=== PATIENT | female | born 1975 | race Caucasian/White ===

== ENCOUNTER 2019-11-28 11:32 | Observation (INO) | payer MEDICAID ==
[~2019-11-28] VITALS: Ht 147.3 cm; Wt 58.1 kg
[~2019-11-28 11:32] MED LIST: IBUP-779 PO; IRON18TA PO; MULT-1101 PO
[2019-11-28] MEDS ORDERED: URSO300C4 PO (14:16)
== END 2019-11-28 14:30 | disposition home or self-care (01) ==
LOC: 8 EST LDRP 11:32
PROVIDERS: ADMIT Obstetrics & Gynecology; ATTEND Obstetrics & Gynecology
DX: O36.8190 Decreased fetal movements, unspecified trimester, not applicable or unspecified (principal); Z3A.00 Weeks of gestation of pregnancy not specified
CPT/HCPCS: 76815; 76818; 99281; G0378

== ENCOUNTER 2019-12-05 08:04 | Inpatient (IN) | payer MEDICAID ==
[~2019-12-05] VITALS: Ht 147.3 cm; Wt 83.5 kg
[~2019-12-05 08:04] MED LIST changes: -IBUP-779 PO; +URSO300C4 PO
[2019-12-05] MEDS ORDERED: LACTATED RINGERS 1,000 ML IV SCH (08:51)
[2019-12-05] MEDS ORDERED: DEXT 5%/LR + PITOCIN 20UNITS/L 1,000 ML IV SCH ×2 (08:51→10:39)
[2019-12-05] MEDS ORDERED: METHYLERGONOVINE MALEATE 0.2 MG/ML IM PRN (09:00)
[2019-12-05] MEDS ORDERED: CARBOPROST TROMETHAMINE 250 MCG/ML AMPUL IM PRN (09:00)
[2019-12-05] MEDS ORDERED: NALOXONE HCL 0.4 MG/ML 1ML VIAL IM PRN (09:00)
[2019-12-05] MEDS ORDERED: FENTANYL CITRATE/PF 50MCG/ML 2ML VIAL ONE (09:04)
[2019-12-05] MEDS ORDERED: MORPHINE SULFATE/PF 1MG/ML 10ML AMP ONE (09:05)
[2019-12-05] MEDS ORDERED: SODIUM CHLORIDE 0.9% 10ML VIAL ONE (09:07)
[2019-12-05] MEDS ORDERED: CEFAZOLIN SODIUM 1000MG/VIAL ONE (09:07)
[2019-12-05 09:11] LABS: BASOPHILS % 0.7 % (0.0-2.0); EOSINOPHILS % 4.6 % (0.0-5.0); HEMATOCRIT. 33.7 % (36.0-48.0); HEMOGLOBIN. 11.6 g/dL (12.0-16.0); LYMPHOCYTES % 24.7 % (20.0-50.0); MEAN CORPUSCULAR HEMOGLOBIN 29.8 pg (28.0-32.0); MEAN CORPUSCULAR VOLUME 86.6 fL (81.0-99.0); MEAN PLATELET VOLUME 9.1 fl (7.4-10.4); PLATELET 237 x1000/uL (130-400); RED BLOOD CELL COUNT 3.89 mill/uL (4.2-5.4); RED CELL DISTRIBUTION WIDTH 13.3 % (11.6-14.6)
[2019-12-05 09:20] LABS: INR 0.9; PARTIAL THROMBOPLASTIN TIME 28.5 sec (23.4-31.0)
[2019-12-05 09:22] LABS: CLARITY URINE CLEAR (CLEAR); COLOR URINE YELLOW (YELLOW); KETONES URINE NEGATIVE (NEGATIVE); LEUKOCYTE ESTERASE URINE NEGATIVE (NEGATIVE); NITRITE URINE NEGATIVE (NEGATIVE); OCCULT BLOOD URINE NEGATIVE (NEGATIVE); PH URINE 6.5 (4.5-8.0); PROTEIN URINE NEGATIVE (NEGATIVE); SPECIFIC GRAVITY URINE 1.009 (1.005-1.030); UROBILINOGEN URINE 0.2 E.U./dL (0.2-1.0)
[2019-12-05] MEDS ORDERED: CITRIC ACID/SODIUM CITRATE SOLN 30ML UDC PO ONE (09:30)
[2019-12-05 09:51] LABS: *AMPHETAMINES SCREEN URINE NEGATIVE (NEGATIVE); *BARBITURATES SCREEN URINE NEGATIVE (NEGATIVE); *BENZODIAZEPINES SCREEN URINE NEGATIVE (NEGATIVE); *COCAINE SCREEN URINE NEGATIVE (NEGATIVE); METHADONE URINE SCREEN NEGATIVE (NEGATIVE); OPIATES URINE SCREEN NEGATIVE (NEGATIVE)
[2019-12-05 09:52] LABS: CANNABINOID URINE SCREEN NEGATIVE (NEGATIVE); PHENCYCLIDINE URINE SCREEN NEGATIVE (NEGATIVE)
[2019-12-05] MEDS ORDERED: BUPIVACAINE HCL/DEXTROSE/PF 0.75% 2ML AMP INJ ONE (10:22)
[2019-12-05] MEDS ORDERED: ESMOLOL HCL 10MG/ML 10ML VIAL IV ONE (10:22)
[2019-12-05] MEDS ORDERED: DIPHENHYDRAMINE 50MG/ML VIAL ONE (10:27)
[2019-12-05] MEDS ORDERED: KETOROLAC 60MG/2ML VIAL IM ONE (10:27)
[2019-12-05] MEDS ORDERED: BISACODYL 10MG SUPP PR PRN (10:45)
[2019-12-05] MEDS ORDERED: LANOLIN OINT 7GM TUBE TOP PRN (10:45)
[2019-12-05] MEDS ORDERED: IBUPROFEN 400MG TABLET PO PRN (10:45)
[2019-12-05] MEDS ORDERED: ONDANSETRON HCL 4MG/2ML INJ IV PRN (10:45)
[2019-12-05] MEDS ORDERED: HEMORRHOIDAL SUPP PR PRN (10:45)
[2019-12-05] MEDS ORDERED: DIPHENHYDRAMINE 25MG CAPSULE PO PRN (10:45)
[2019-12-05] MEDS ORDERED: DIPHENHYDRAMINE 50MG/ML VIAL IV PRN (11:00)
[2019-12-05] MEDS ORDERED: NALOXONE HCL 0.4 MG/ML 1ML VIAL IV PRN (11:00)
[2019-12-05] MEDS ORDERED: BUTORPHANOL TARTRATE 2 MG/ML VIAL IV PRN (11:00)
[2019-12-05 12:24] LABS: HEPATITIS B SURFACE ANTIGEN NEGATIVE
[2019-12-05 14:30] VITALS: BP 98/50
[2019-12-05 15:00] VITALS: BP 102/49
[2019-12-05 15:45] VITALS: BP 93/49
[2019-12-05] MEDS ORDERED: KETOROLAC 30MG/ML VIAL IV SCH (16:00)
[2019-12-05 17:53] VITALS: BP 113/69
[2019-12-05 19:30] VITALS: BP 99/60
[2019-12-05 23:22] VITALS: BP 98/65
[2019-12-06 03:32] VITALS: BP 98/60
[2019-12-06 06:30] VITALS: BP 89/60
[2019-12-06 08:30] VITALS: BP 90/56
[2019-12-06] MEDS: SIMETHICONE 80MG TABLET CHEW PO SCH ×2 (14:02→21:11)
[2019-12-06] MEDS: FERROUS SULFATE 325MG TABLET PO SCH (14:02)
[2019-12-06] MEDS: PRENATAL VIT/FE FUMARATE/FA TABLET PO SCH (14:02)
[2019-12-06] MEDS: ACETAMINOPHEN WITH CODEINE 300/30MG TABLET PO PRN ×2 (14:03→19:43)
[2019-12-06 16:12] VITALS: BP 110/58
[2019-12-06 19:40] VITALS: BP 103/56
[2019-12-06] MEDS: DOCUSATE SODIUM 100MG CAPSULE PO SCH ×2 (21:00→21:11)
[2019-12-06] MEDS: IBUPROFEN 800MG TABLET PO PRN (21:10)
[2019-12-06] MEDS: MAGNESIUM/ALUMINUM HYDROXIDE/SIMETHICONE 30ML UDC PO SCH (21:11)
[2019-12-07] MEDS: HYDROCODONE/ACETAMINOPHEN 5/325MG TABLET PO PRN ×3 (03:33→20:44)
[2019-12-07 04:33] VITALS: BP 97/40
[2019-12-07] MEDS ORDERED: INFLUENZA VIRUS VACCINE(AFLURIA) 0.5ML SYR IM ONE (06:15)
[2019-12-07 08:20] VITALS: BP 116/75
[2019-12-07] MEDS: SIMETHICONE 80MG TABLET CHEW PO SCH ×3 (08:36→18:00)
[2019-12-07] MEDS: PRENATAL VIT/FE FUMARATE/FA TABLET PO SCH (08:36)
[2019-12-07] MEDS: MAGNESIUM/ALUMINUM HYDROXIDE/SIMETHICONE 30ML UDC PO SCH ×3 (08:37→17:30)
[2019-12-07] MEDS: FERROUS SULFATE 325MG TABLET PO SCH ×3 (08:37→17:30)
[2019-12-07] MEDS ORDERED: TETANUS, DIPHTHERIA, PERTUSSIS VAC/PF 0.5ML (>7YR OLD) IM ONE (12:00)
[2019-12-07] MEDS: IBUPROFEN 800MG TABLET PO PRN ×2 (13:23→23:40)
[2019-12-07 20:00] VITALS: BP 98/49
[2019-12-08] VITALS: BP 105/50
[2019-12-08 04:00] VITALS: BP 103/52
[2019-12-08] MEDS: ACETAMINOPHEN WITH CODEINE 300/30MG TABLET PO PRN (04:26)
[2019-12-08] MEDS: MAGNESIUM/ALUMINUM HYDROXIDE/SIMETHICONE 30ML UDC PO SCH ×3 (07:30→12:30)
[2019-12-08] MEDS: SIMETHICONE 80MG TABLET CHEW PO SCH ×3 (08:00→13:00)
[2019-12-08] MEDS: FERROUS SULFATE 325MG TABLET PO SCH ×2 (08:15→12:30)
[2019-12-08] MEDS: IBUPROFEN 800MG TABLET PO PRN (08:16)
[2019-12-08] MEDS: PRENATAL VIT/FE FUMARATE/FA TABLET PO SCH (08:16)
[2019-12-08 08:17] VITALS: BP 92/50
[2019-12-08] MEDS ORDERED: IRON18TA PO (09:06)
[2019-12-08] MEDS ORDERED: MULT-1101 PO (09:06)
[2019-12-08] MEDS ORDERED: IBUP-2030 MT (09:06)
[2019-12-08 13:38] LABS: BASOPHILS % 0.3 % (0.0-2.0); EOSINOPHILS % 5.6 % (0.0-5.0); HEMATOCRIT. 33.6 % (36.0-48.0); HEMOGLOBIN. 11.6 g/dL (12.0-16.0); LYMPHOCYTES % 28.8 % (20.0-50.0); MEAN CORPUSCULAR HEMOGLOBIN 30.6 pg (28.0-32.0); MEAN CORPUSCULAR VOLUME 88.3 fL (81.0-99.0); MEAN PLATELET VOLUME 7.3 fl (7.4-10.4); MONOCYTES % 5.2 % (2.0-8.0); NEUTROPHILS % 60.1 % (40.0-76.0); PLATELET 364 x1000/uL (130-400); RED CELL DISTRIBUTION WIDTH 13.5 % (11.6-14.6)
== END 2019-12-08 14:15 | disposition home or self-care (01) | DRG 540 ==
LOC: 8 EST LDRP 08:04 → OBSVTOIN 08:04 → UNDODISIN 13:00 → 8EST 13:15
PROVIDERS: ADMIT Obstetrics & Gynecology; ATTEND Obstetrics & Gynecology
PROC: 10D00Z1 Extraction of Products of Conception, Low, Open Approach (ICD-10-PCS; principal; 2019-12-05)
PROC: 0UB70ZZ Excision of Bilateral Fallopian Tubes, Open Approach (ICD-10-PCS; 2019-12-05)
DX: O34.211 Maternal care for low transverse scar from previous cesarean delivery (principal); K80.21 Calculus of gallbladder without cholecystitis with obstruction; Z37.0 Single live birth; Z30.2 Encounter for sterilization; Z3A.37 37 weeks gestation of pregnancy
CPT/HCPCS: 36415; 80305; 81003; 85025; 86592; 86703; 86762; 86850; 86900; 86920; 87340; 88302; 88307; 90686; 90715; J0690; J1200; J1885; J2274; J2590; J3010; J3490